=== PATIENT | female | born 1990 | race American Indian/Alaskan Native ===

== ENCOUNTER 2016-11-21 01:19 | Emergency (ER) | payer OTHER ==
[2016-11-21] MEDS ORDERED: MOTRIN PO ONE (04:46)
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
[2016-11-21] MEDS ORDERED: TORADOL ONE (05:57)
[2016-11-21] MEDS ORDERED: TORADOL IM ONE (06:01)
[2016-11-21 06:10] VITALS: BP 128/70
== END 2016-11-21 07:11 | disposition home or self-care (01) ==
LOC: ED 01:19
DX: S39.012A Strain of muscle, fascia and tendon of lower back, initial encounter (principal); I10 Essential (primary) hypertension; E11.9 Type 2 diabetes mellitus without complications; V49.9XXA Car occupant (driver) (passenger) injured in unspecified traffic accident, initial encounter; Y93.89 Activity, other specified; Y99.9 Unspecified external cause status; Y92.410 Unspecified street and highway as the place of occurrence of the external cause
CPT/HCPCS: 72080; 96372; 99283; J1885